=== PATIENT | female | born 1940 | race Caucasian/White ===

== ENCOUNTER → 2018-01-09 08:29 | Outpatient (CLI) | payer OTHER ==
[~2018-01-09 08:29] MED LIST: COZAAR100 MG; GILTUSS TR1 TAB.SR .; PREDNISONE10 MG; PROVENTIL S1 ML/5 MG; PULMICORT1 MG/2 ML; SIMVASTATIN20 MG; SYNTHROID100 MCG; TRISPEC-SF LIQ120 ML
== END | disposition home or self-care (01) ==
LOC: LAB 08:29
DX: D51.3 Other dietary vitamin B12 deficiency anemia (principal); D51.8 Other vitamin B12 deficiency anemias; D50.8 Other iron deficiency anemias; I73.89 Other specified peripheral vascular diseases; E03.8 Other specified hypothyroidism; E78.4 Other hyperlipidemia; I10 Essential (primary) hypertension; D53.8 Other specified nutritional anemias; E55.9 Vitamin D deficiency, unspecified; K90.89 Other intestinal malabsorption

== ENCOUNTER 2018-03-16 11:41 | Outpatient (CLI) | payer OTHER | END 2018-03-16 15:00 | disposition home or self-care (01) | LOC: RAD 11:41 | DX: M25.561 Pain in right knee (principal); M25.562 Pain in left knee ==

== ENCOUNTER 2018-04-06 07:32 | Outpatient (CLI) | payer OTHER | END 2018-04-06 07:35 | disposition home or self-care (01) | LOC: RX STUDY 07:32 | DX: R19.5 Other fecal abnormalities (principal) ==

== ENCOUNTER 2018-07-16 07:52 | Outpatient (CLI) | payer OTHER | END 2018-07-16 08:02 | disposition home or self-care (01) | LOC: LAB 07:52 | DX: D51.3 Other dietary vitamin B12 deficiency anemia (principal); D51.8 Other vitamin B12 deficiency anemias; D50.8 Other iron deficiency anemias; I73.89 Other specified peripheral vascular diseases; E03.8 Other specified hypothyroidism; E78.49 Other hyperlipidemia; I10 Essential (primary) hypertension; D53.8 Other specified nutritional anemias; R97.0 Elevated carcinoembryonic antigen [CEA]; E55.9 Vitamin D deficiency, unspecified; K90.89 Other intestinal malabsorption ==

== ENCOUNTER → 2018-09-25 | Outpatient (CLI) | payer OTHER | END | disposition home or self-care (01) | LOC: RAD 08:38 | DX: M25.562 Pain in left knee (principal); M25.561 Pain in right knee ==

== ENCOUNTER 2018-11-26 13:18 | Outpatient (CLI) | payer OTHER | END 2018-11-26 13:21 | disposition home or self-care (01) | LOC: RAD 13:18 | DX: M25.572 Pain in left ankle and joints of left foot (principal) ==

== ENCOUNTER 2018-12-13 12:07 | Outpatient (CLI) | payer OTHER | END 2018-12-13 15:10 | disposition home or self-care (01) | LOC: RAD 12:07 | DX: M25.572 Pain in left ankle and joints of left foot (principal) ==

== ENCOUNTER 2019-01-14 12:58 | Outpatient (CLI) | payer OTHER | END 2019-01-14 15:10 | disposition home or self-care (01) | LOC: SONOGRAMA 12:58 → MAMO-SONO 13:15 → SONOGRAMA 15:10 | DX: M25.511 Pain in right shoulder (principal); M25.572 Pain in left ankle and joints of left foot; M25.562 Pain in left knee ==

== ENCOUNTER 2019-02-05 07:46 | Outpatient (CLI) | payer OTHER | END 2019-02-05 15:00 | disposition home or self-care (01) | LOC: LAB 07:46 | DX: E03.8 Other specified hypothyroidism (principal); D51.3 Other dietary vitamin B12 deficiency anemia; D51.8 Other vitamin B12 deficiency anemias; D50.8 Other iron deficiency anemias; I73.89 Other specified peripheral vascular diseases; E78.49 Other hyperlipidemia; I10 Essential (primary) hypertension; D53.8 Other specified nutritional anemias; K90.89 Other intestinal malabsorption; R97.0 Elevated carcinoembryonic antigen [CEA] ==

== ENCOUNTER 2019-08-06 08:29 | Outpatient (CLI) | payer OTHER | END 2019-08-06 09:09 | disposition home or self-care (01) | LOC: LAB 08:29 | DX: D51.3 Other dietary vitamin B12 deficiency anemia (principal); D72.823 Leukemoid reaction; D51.8 Other vitamin B12 deficiency anemias; D50.8 Other iron deficiency anemias; I73.89 Other specified peripheral vascular diseases; E03.8 Other specified hypothyroidism; E78.49 Other hyperlipidemia; I10 Essential (primary) hypertension; D53.8 Other specified nutritional anemias; K90.89 Other intestinal malabsorption; R97.0 Elevated carcinoembryonic antigen [CEA] ==

== ENCOUNTER 2019-10-17 08:19 | Outpatient (CLI) | payer OTHER | END 2019-10-17 08:39 | disposition home or self-care (01) | LOC: LAB 08:19 | DX: D51.3 Other dietary vitamin B12 deficiency anemia (principal); D51.8 Other vitamin B12 deficiency anemias; I73.89 Other specified peripheral vascular diseases; E03.8 Other specified hypothyroidism; E78.49 Other hyperlipidemia; D72.823 Leukemoid reaction; I10 Essential (primary) hypertension; D50.8 Other iron deficiency anemias; E06.3 Autoimmune thyroiditis ==

== ENCOUNTER 2020-04-16 07:56 | Outpatient (CLI) | payer OTHER | END 2020-04-16 08:13 | disposition home or self-care (01) | LOC: LAB 07:56 | PROVIDERS: ATTEND Internal Medicine Hematology & Oncology | DX: D50.8 Other iron deficiency anemias (principal); I10 Essential (primary) hypertension; D51.8 Other vitamin B12 deficiency anemias; E55.9 Vitamin D deficiency, unspecified; D51.1 Vitamin B12 deficiency anemia due to selective vitamin B12 malabsorption with proteinuria; D51.0 Vitamin B12 deficiency anemia due to intrinsic factor deficiency; E03.8 Other specified hypothyroidism; D72.823 Leukemoid reaction; D51.3 Other dietary vitamin B12 deficiency anemia; I73.89 Other specified peripheral vascular diseases; E78.49 Other hyperlipidemia; D53.8 Other specified nutritional anemias ==

== ENCOUNTER 2020-10-12 08:21 | Outpatient (CLI) | payer OTHER | END 2020-10-12 08:36 | disposition home or self-care (01) | LOC: LAB 08:21 | PROVIDERS: ATTEND Internal Medicine Hematology & Oncology | DX: D50.8 Other iron deficiency anemias (principal); I10 Essential (primary) hypertension; D51.8 Other vitamin B12 deficiency anemias; E55.9 Vitamin D deficiency, unspecified; E03.8 Other specified hypothyroidism; R97.0 Elevated carcinoembryonic antigen [CEA]; R97.8 Other abnormal tumor markers; D72.823 Leukemoid reaction; D51.3 Other dietary vitamin B12 deficiency anemia; I73.89 Other specified peripheral vascular diseases; E78.49 Other hyperlipidemia; D53.8 Other specified nutritional anemias; M15.8 Other polyosteoarthritis ==

== ENCOUNTER 2020-10-25 10:57 | Outpatient (CLI) | payer OTHER | END 2020-10-25 11:13 | disposition HB | LOC: MRI 10:57 | PROVIDERS: ATTEND Orthopaedic Surgery | DX: M25.511 Pain in right shoulder (principal) | CPT/HCPCS: 73221 ==

== ENCOUNTER 2020-12-24 09:53 | Outpatient (CLI) | payer OTHER | END 2020-12-24 10:02 | disposition home or self-care (01) | LOC: RAD 09:53 | PROVIDERS: ATTEND Orthopaedic Surgery | DX: M25.561 Pain in right knee (principal); M25.562 Pain in left knee ==

== ENCOUNTER 2020-12-25 12:30 | Outpatient (CLI) | payer OTHER | END 2020-12-25 12:49 | disposition home or self-care (01) | LOC: MRI 12:30 | PROVIDERS: ATTEND Orthopaedic Surgery | DX: M25.512 Pain in left shoulder (principal); M75.122 Complete rotator cuff tear or rupture of left shoulder, not specified as traumatic | CPT/HCPCS: 73221 ==

== ENCOUNTER → 2021-04-15 08:14 | Outpatient (CLI) | payer OTHER | END | disposition home or self-care (01) | LOC: LAB 08:14 | PROVIDERS: ATTEND Internal Medicine Hematology & Oncology | DX: D50.8 Other iron deficiency anemias (principal); I10 Essential (primary) hypertension; R74.02 Elevation of levels of lactic acid dehydrogenase [LDH]; K76.89 Other specified diseases of liver; D51.8 Other vitamin B12 deficiency anemias; E55.9 Vitamin D deficiency, unspecified; E03.8 Other specified hypothyroidism; R97.0 Elevated carcinoembryonic antigen [CEA]; R97.8 Other abnormal tumor markers; D72.823 Leukemoid reaction; D51.3 Other dietary vitamin B12 deficiency anemia; D53.8 Other specified nutritional anemias; E78.49 Other hyperlipidemia ==

== ENCOUNTER 2021-08-05 09:46 | Outpatient (CLI) | payer OTHER | END 2021-08-05 10:00 | disposition home or self-care (01) | LOC: TOM 09:46 | PROVIDERS: ATTEND Psychiatry & Neurology Neurology | DX: G31.84 Mild cognitive impairment of uncertain or unknown etiology (principal) ==

== ENCOUNTER → 2021-08-14 | Outpatient (CLI) | payer OTHER | END | disposition home or self-care (01) | LOC: MRI 10:52 | PROVIDERS: ATTEND Internal Medicine Rheumatology | DX: M51.27 Other intervertebral disc displacement, lumbosacral region (principal); M47.897 Other spondylosis, lumbosacral region | CPT/HCPCS: 72148 ==

== ENCOUNTER → 2021-10-12 | Outpatient (CLI) | payer OTHER | END | disposition home or self-care (01) | LOC: LAB 08:26 | PROVIDERS: ATTEND Internal Medicine Hematology & Oncology | DX: D50.8 Other iron deficiency anemias (principal); I10 Essential (primary) hypertension; R74.02 Elevation of levels of lactic acid dehydrogenase [LDH]; K76.89 Other specified diseases of liver; D51.8 Other vitamin B12 deficiency anemias; E03.8 Other specified hypothyroidism; R97.0 Elevated carcinoembryonic antigen [CEA]; R97.8 Other abnormal tumor markers; D72.823 Leukemoid reaction; D51.3 Other dietary vitamin B12 deficiency anemia; I73.89 Other specified peripheral vascular diseases; E78.49 Other hyperlipidemia; D53.8 Other specified nutritional anemias ==

== ENCOUNTER 2021-12-02 09:23 | Outpatient (CLI) | payer OTHER ==
[~2021-12-02 09:23] MED LIST changes: -DIOVAN40 MG PO; -HYDRODIURIL12.5 MG PO; -ZOCOR40 MG PO
== END 2021-12-02 09:29 | disposition home or self-care (01) ==
LOC: SONOGRAMA 09:23
PROVIDERS: ATTEND Internal Medicine Hematology & Oncology
DX: E04.2 Nontoxic multinodular goiter (principal)

== ENCOUNTER → 2021-12-02 | Outpatient (CLI) | payer OTHER ==
[~2021-12-02] MED LIST changes: +DIOVAN40 MG PO; +HYDRODIURIL12.5 MG PO; +ZOCOR40 MG PO
== END | disposition home or self-care (01) ==
LOC: NUCLEAR 08:25
PROVIDERS: ATTEND General Practice
DX: E06.3 Autoimmune thyroiditis (principal)

== ENCOUNTER 2021-12-07 07:40 | Outpatient (CLI) | payer OTHER | END 2021-12-07 08:03 | disposition home or self-care (01) | LOC: LAB 07:40 | PROVIDERS: ATTEND Internal Medicine Hematology & Oncology | DX: D50.8 Other iron deficiency anemias (principal); I10 Essential (primary) hypertension; R74.02 Elevation of levels of lactic acid dehydrogenase [LDH]; K76.89 Other specified diseases of liver; C50.919 Malignant neoplasm of unspecified site of unspecified female breast; R97.8 Other abnormal tumor markers; C25.9 Malignant neoplasm of pancreas, unspecified; R97.1 Elevated cancer antigen 125 [CA 125]; D72.823 Leukemoid reaction; D51.3 Other dietary vitamin B12 deficiency anemia; D51.8 Other vitamin B12 deficiency anemias; I73.9 Peripheral vascular disease, unspecified; E03.8 Other specified hypothyroidism; E78.5 Hyperlipidemia, unspecified; D53.8 Other specified nutritional anemias; R19.5 Other fecal abnormalities ==

== ENCOUNTER 2021-12-13 10:36 | Emergency (ER) | payer OTHER ==
[~2021-12-13] VITALS: Ht 152.4 cm; Wt 65.3 kg
[2021-12-13] MEDS ORDERED: ZOCOR40 MG PO (10:50)
[2021-12-13] MEDS ORDERED: DIOVAN40 MG PO (10:52)
[2021-12-13] MEDS ORDERED: HYDRODIURIL12.5 MG PO (10:52)
== END 2021-12-13 11:35 | disposition home or self-care (01) ==
LOC: ER 10:36
DX: S40.011A Contusion of right shoulder, initial encounter (principal); W18.30XA Fall on same level, unspecified, initial encounter; Y93.9 Activity, unspecified; Y92.018 Other place in single-family (private) house as the place of occurrence of the external cause; Y99.9 Unspecified external cause status; I10 Essential (primary) hypertension; Z91.013 Allergy to seafood

== ENCOUNTER 2022-03-08 08:47 | Outpatient (CLI) | payer OTHER ==
[~2022-03-08 08:47] MED LIST changes: +DIOVAN40 MG PO; +HYDRODIURIL12.5 MG PO; +ZOCOR40 MG PO
== END 2022-03-08 09:01 | disposition home or self-care (01) ==
LOC: LAB 08:47
PROVIDERS: ATTEND Internal Medicine Hematology & Oncology
DX: D50.8 Other iron deficiency anemias (principal); I10 Essential (primary) hypertension; R74.02 Elevation of levels of lactic acid dehydrogenase [LDH]; K76.89 Other specified diseases of liver; R97.0 Elevated carcinoembryonic antigen [CEA]; R97.8 Other abnormal tumor markers; D51.8 Other vitamin B12 deficiency anemias; E03.8 Other specified hypothyroidism; D72.823 Leukemoid reaction; I73.9 Peripheral vascular disease, unspecified; E78.5 Hyperlipidemia, unspecified; D53.8 Other specified nutritional anemias; G30.0 Alzheimer's disease with early onset

== ENCOUNTER → 2022-09-16 07:09 | Outpatient (CLI) | payer OTHER | END | disposition home or self-care (01) | LOC: LAB 07:09 | PROVIDERS: ATTEND Internal Medicine Hematology & Oncology | DX: D50.8 Other iron deficiency anemias (principal); I10 Essential (primary) hypertension; R74.02 Elevation of levels of lactic acid dehydrogenase [LDH]; K76.89 Other specified diseases of liver; D51.8 Other vitamin B12 deficiency anemias; E55.9 Vitamin D deficiency, unspecified; E78.2 Mixed hyperlipidemia; E03.8 Other specified hypothyroidism; R97.0 Elevated carcinoembryonic antigen [CEA]; R97.8 Other abnormal tumor markers ==

== ENCOUNTER 2023-03-21 08:56 | Outpatient (CLI) | payer OTHER | END 2023-03-21 09:13 | disposition home or self-care (01) | LOC: LAB 08:56 | PROVIDERS: ATTEND Internal Medicine Hematology & Oncology | DX: D50.8 Other iron deficiency anemias (principal); I10 Essential (primary) hypertension; R74.02 Elevation of levels of lactic acid dehydrogenase [LDH]; K76.89 Other specified diseases of liver; D51.8 Other vitamin B12 deficiency anemias; E55.9 Vitamin D deficiency, unspecified; E78.2 Mixed hyperlipidemia; C56.9 Malignant neoplasm of unspecified ovary; E03.8 Other specified hypothyroidism; R97.8 Other abnormal tumor markers; R97.1 Elevated cancer antigen 125 [CA 125]; R97.0 Elevated carcinoembryonic antigen [CEA]; D72.823 Leukemoid reaction; D51.3 Other dietary vitamin B12 deficiency anemia; I73.9 Peripheral vascular disease, unspecified; E78.5 Hyperlipidemia, unspecified; D53.8 Other specified nutritional anemias; G30.0 Alzheimer's disease with early onset ==

== ENCOUNTER → 2023-07-18 08:28 | Outpatient (CLI) | payer OTHER ==
[2023-07-18 09:17] LABS: HEMATOCRIT 37.9 % (36.0-45.00); MEAN CELL VOLUME 91.3 fL (80.00-100.00); MEAN CORPUSCULAR HEMOGLOBIN 31.3 pg (27.00-32.0); MEAN CORPUSCULAR HGB CONC 34.3 g/dl (32.0-36.0); PLATELET COUNT 313 K/uL (150-450); RED BLOOD COUNT 4.16 M/uL (4.00-6.00)
[2023-07-18 10:27] LABS: ALBUMIN 3.5 gm/dL (3.4-5.0); BILIRUBIN TOTAL 0.67 mg/dL (0.3-1.2); CALCIUM 8.5 mg/dL (8.5-10.1); CHOL HDL RATIO 2.1 (0-5.0); CREATININE SERUM 0.66 mg/dL (0.55-1.02); GFR 86.17; GLOBULINA 3.6 G/DL (2.4-3.5); POTASSIUM 3.54 mEq/L (3.5-5.1); T4 FREE 0.99 NG/ML (0.76-1.46); TOTAL PROTEIN 7.1 gm/dL (6.4-8.2); TSH 0.526 uIU/mL (0.358-3.74)
[2023-07-20 15:20] LABS: FOLIC ACID > 20.00 ng/ml (4.78-20); VITAMIN D3 25 HYDROXY 42.03 ng/ml (30-120)
== END | disposition home or self-care (01) ==
LOC: LAB 08:28
PROVIDERS: ATTEND Internal Medicine Hematology & Oncology
DX: D50.8 Other iron deficiency anemias (principal); I10 Essential (primary) hypertension; R74.02 Elevation of levels of lactic acid dehydrogenase [LDH]; K76.89 Other specified diseases of liver; D51.8 Other vitamin B12 deficiency anemias; E55.9 Vitamin D deficiency, unspecified; E78.2 Mixed hyperlipidemia; E03.8 Other specified hypothyroidism; C56.9 Malignant neoplasm of unspecified ovary; R97.8 Other abnormal tumor markers; R97.1 Elevated cancer antigen 125 [CA 125]; R97.0 Elevated carcinoembryonic antigen [CEA]; D72.823 Leukemoid reaction; D51.3 Other dietary vitamin B12 deficiency anemia; I73.9 Peripheral vascular disease, unspecified; E78.5 Hyperlipidemia, unspecified; D53.8 Other specified nutritional anemias; G30.0 Alzheimer's disease with early onset

== ENCOUNTER 2024-10-08 09:19 | Outpatient (CLI) | payer OTHER ==
[2024-10-08 10:18] LABS: HEMATOCRIT 37.2 % (36.0-45.00); HEMOGLOBIN 12.5 g/dL (12.0-15.00); MEAN CELL VOLUME 93.4 fL (80.00-100.00); MEAN CORPUSCULAR HEMOGLOBIN 31.4 pg (27.00-32.0); MEAN CORPUSCULAR HGB CONC 33.7 g/dl (32.0-36.0); PLATELET COUNT 267 K/uL (150-450); RED BLOOD COUNT 3.98 M/uL (4.00-6.00); RED CELL DISTRIBUTION WIDTH 13.3 % (11.5-14.5)
[2024-10-08 11:12] LABS: ALBUMIN 3.6 gm/dL (3.4-5.0); BILIRUBIN TOTAL 0.57 mg/dL (0.3-1.2); CALCIUM 8.7 mg/dL (8.5-10.1); CHOL HDL RATIO 1.8 (0-5.0); CREATININE SERUM 0.58 mg/dL (0.55-1.02); GFR 99.53; GLOBULINA 3.1 G/DL (2.4-3.5); POTASSIUM 3.74 mEq/L (3.5-5.1); T4 FREE 1.16 NG/ML (0.76-1.46); TOTAL PROTEIN 6.7 gm/dL (6.4-8.2); TSH 1.41 uIU/mL (0.358-3.74)
[2024-10-09 14:53] LABS: FOLIC ACID > 20.00 ng/ml (4.78-20); VITAMIN D3 25 HYDROXY 44.65 ng/ml (30-120)
== END 2024-10-08 10:34 | disposition home or self-care (01) ==
LOC: LAB 09:19
PROVIDERS: ATTEND Internal Medicine Hematology & Oncology
DX: D50.8 Other iron deficiency anemias (principal); I10 Essential (primary) hypertension; R74.02 Elevation of levels of lactic acid dehydrogenase [LDH]; K76.89 Other specified diseases of liver; D51.8 Other vitamin B12 deficiency anemias; E55.9 Vitamin D deficiency, unspecified; E78.2 Mixed hyperlipidemia; E03.8 Other specified hypothyroidism; C56.9 Malignant neoplasm of unspecified ovary; C50.919 Malignant neoplasm of unspecified site of unspecified female breast

== ENCOUNTER 2024-10-26 10:16 | Outpatient (CLI) | payer OTHER | END 2024-10-26 10:18 | disposition home or self-care (01) | LOC: TOM 10:16 | PROVIDERS: ATTEND Psychiatry & Neurology Clinical Neurophysiology | DX: G31.84 Mild cognitive impairment of uncertain or unknown etiology (principal); R56.9 Unspecified convulsions ==

== ENCOUNTER 2024-10-31 13:28 | Outpatient (CLI) | payer OTHER | END 2024-10-31 13:29 | disposition home or self-care (01) | LOC: NUCLEAR 13:28 | PROVIDERS: ATTEND Internal Medicine Hematology & Oncology | DX: M81.0 Age-related osteoporosis without current pathological fracture (principal) ==

== ENCOUNTER 2025-05-20 09:55 | Outpatient (CLI) | payer OTHER ==
[2025-05-20 11:23] LABS: BASO % 1.0 % (0.1-1.2); EOS # 0.10 (0.04-0.54); EOS % 1.6 % (0.7-7.0); LYMPH # 1.64 (1.18-3.74); LYMPH % 26.8 % (19.3-53.1); MEAN PLATELET VOLUME 9.90 fl (9.4-12.4); MONO # 0.38 (0.24-0.82); MONO % 6.2 % (4.7-12.5); NEUT # 3.93 (1.56-6.13); NEUT % 64.2 % (34.0-71.1); RED CELL DISTRIBUTION WIDTH 12.7 % (11.6-14.4)
[2025-05-20 12:00] LABS: URINE BILIRRUBIN NEGATIVE (NEGATIVE); URINE BLOOD NEGATIVE; URINE GLUCOSE NEGATIVE (NEGATIVE); URINE KETONE NEGATIVE (NEGATIVE); URINE LEUKOCYTE NEGATIVE; URINE NITRATE NEGATIVE; URINE PROTEIN NEGATIVE (NEGATIVE); URINE UROBILINOGEN 0.2 E.U./dl
[2025-05-20 12:18] LABS: ALT/SGPT 29.0 U/L (12-78); AST/SGOT 19.0 U/L (15-37); BILIRUBIN TOTAL 0.9 mg/dL (0.3-1.2); BUN CREA RATIO 24.0 (7.0-25.0); CHOL HDL RATIO 1.7 (0-5.0); CREATININE SERUM 0.55 mg/dL (0.55-1.02); GFR 105.82; GLOBULINA 2.8 G/DL (2.4-3.5); GLUCOSE FASTING 98.0 mg/dL (65-100); HDL 90.0 mg/dl (40-60); LDL 39.0 mg/dl (0-130); OSMOLALITY SERUM 285.0 MOSM/KG (275-295); VLDL 19.0 (0-39)
[2025-05-20 12:20] LABS: TSH 0.206 uIU/mL (0.358-3.74)
[2025-05-20 12:23] LABS: URINE APPEARANCE SL CLOUDY; URINE COLOR YELLOW
[2025-05-20 12:24] LABS: URINE RBC 0-3 /HPF
[2025-05-20 12:25] LABS: URINE BACTERIA FEW; URINE CRYSTALS NEGATIVE /HPF; URINE MUCUS SCANT
== END 2025-05-20 10:01 | disposition home or self-care (01) ==
LOC: LAB 09:55
PROVIDERS: ATTEND Internal Medicine Cardiovascular Disease
DX: D64.9 Anemia, unspecified (principal); N39.0 Urinary tract infection, site not specified; R10.9 Unspecified abdominal pain; E03.9 Hypothyroidism, unspecified; E78.5 Hyperlipidemia, unspecified; R80.9 Proteinuria, unspecified; E11.9 Type 2 diabetes mellitus without complications; I50.22 Chronic systolic (congestive) heart failure

== ENCOUNTER 2025-06-12 07:34 | Outpatient (CLI) | payer OTHER ==
[2025-06-12 08:39] LABS: BASO % 1.0 % (0.1-1.2); EOS # 0.15 (0.04-0.54); EOS % 2.4 % (0.7-7.0); LYMPH # 1.50 (1.18-3.74); LYMPH % 24.1 % (19.3-53.1); MEAN PLATELET VOLUME 9.70 fl (9.4-12.4); MONO # 0.38 (0.24-0.82); MONO % 6.1 % (4.7-12.5); NEUT # 4.12 (1.56-6.13); NEUT % 66.1 % (34.0-71.1); RED CELL DISTRIBUTION WIDTH 12.8 % (11.6-14.4)
[2025-06-12 09:20] LABS: ALT/SGPT 18.0 U/L (12-78); AST/SGOT 13.0 U/L (15-37); BILIRUBIN TOTAL 0.77 mg/dL (0.3-1.2); BUN CREA RATIO 22.0 (7.0-25.0); CHOL HDL RATIO 2.3 (0-5.0); CREATININE SERUM 0.64 mg/dL (0.55-1.02); FE 98.0 ug/dl (50-170); GFR 88.84; GLOBULINA 3.2 G/DL (2.4-3.5); GLUCOSE FASTING 100.0 mg/dL (65-100); HDL 82.0 mg/dl (40-60); LDH 225.0 U/L (84-246); LDL 87.0 mg/dl (0-130); OSMOLALITY SERUM 289.0 MOSM/KG (275-295); T4 FREE 1.18 NG/ML (0.76-1.46); TSH 0.423 uIU/mL (0.358-3.74); VLDL 18.0 (0-39)
[2025-06-12 11:26] LABS: FOLIC ACID > 20.00 ng/ml (4.78-20); VITAMIN D3 25 HYDROXY 25.58 ng/ml (30-120)
[2025-06-13 09:11] LABS: CA 125 7.8 U/mL (0.0-38.1); CA 15-3 17.0 U/mL (0.0-25.0)
== END 2025-06-12 07:37 | disposition home or self-care (01) ==
LOC: LAB 07:34
PROVIDERS: ATTEND Internal Medicine Hematology & Oncology
DX: D50.8 Other iron deficiency anemias (principal); I10 Essential (primary) hypertension; R74.02 Elevation of levels of lactic acid dehydrogenase [LDH]; K76.89 Other specified diseases of liver; D51.8 Other vitamin B12 deficiency anemias; E55.9 Vitamin D deficiency, unspecified; Z13.29 Encounter for screening for other suspected endocrine disorder; E78.2 Mixed hyperlipidemia; E03.8 Other specified hypothyroidism; C50.919 Malignant neoplasm of unspecified site of unspecified female breast; R97.8 Other abnormal tumor markers; C56.9 Malignant neoplasm of unspecified ovary; R97.1 Elevated cancer antigen 125 [CA 125]; R97.0 Elevated carcinoembryonic antigen [CEA]; D72.823 Leukemoid reaction; D51.3 Other dietary vitamin B12 deficiency anemia; I73.9 Peripheral vascular disease, unspecified; E78.5 Hyperlipidemia, unspecified; D53.8 Other specified nutritional anemias; G30.0 Alzheimer's disease with early onset

== ENCOUNTER 2025-06-12 08:21 | Outpatient (CLI) | payer OTHER | END 2025-06-12 08:25 | disposition home or self-care (01) | LOC: MAMO-SONO 08:21 | PROVIDERS: ATTEND Internal Medicine Hematology & Oncology | DX: N63.0 Unspecified lump in unspecified breast (principal); N64.4 Mastodynia; Z12.31 Encounter for screening mammogram for malignant neoplasm of breast; D72.823 Leukemoid reaction; D51.3 Other dietary vitamin B12 deficiency anemia; D51.8 Other vitamin B12 deficiency anemias; D50.8 Other iron deficiency anemias; I73.9 Peripheral vascular disease, unspecified; E03.8 Other specified hypothyroidism; E78.5 Hyperlipidemia, unspecified; I10 Essential (primary) hypertension; D53.8 Other specified nutritional anemias; G30.0 Alzheimer's disease with early onset ==